=== PATIENT | female | born 1950 | race Caucasian/White ===

== ENCOUNTER 2017-04-21 13:26 | Outpatient (CLI) | payer MEDICARE ==
--- NOTE | 2017-04-22 14:01 | Mammography Report ---
DIGITAL SCREENING MAMMOGRAM: 04/21/2017 CLINICAL INDICATION: A 66-year-old with history of late childbearing, family history of breast cancer , for screening. COMPARISON: 09/2007. TECHNIQUE: Routine CC and MLO projections were obtained of the breasts. FINDINGS: The breasts demonstrate heterogeneously dense fibroglandular parenchyma bilaterally. Coars e, typically benign calcifications are present. No suspicious masses, clustered microcalcifications, or regions of architectural distortion are identified. IMPRESSION: BENIGN FINDINGS. RECOMMENDATION: ROUTINE ANNUAL SCREENING UNLESS OTHERWISE CLINICALLY INDICATED. BIRADS CATEGORY 2-BENIGN FINDINGS. STANDARD QUALIFYING STATEMENTS 1. This examination was reviewed with the aid of Computer-Aided Detection (CAD). 2. A negative or benign imaging report should not delay biopsy if clinically suspicious findings are present. Consider surgical consultation if warranted. More than 5% of cancers are not identified by i maging. 3. Dense breasts may obscure an underlying neoplasm. JOB #: [id number] EXT JOB #:[id number]
== END 2017-04-21 13:27 | disposition home or self-care (01) ==
LOC: DI.S 13:26
PROVIDERS: ATTEND Internal Medicine
DX: Z12.31 Encounter for screening mammogram for malignant neoplasm of breast (principal)
CPT/HCPCS: 77067

== ENCOUNTER 2017-12-07 10:08 | Outpatient (CLI) | payer MEDICARE ==
--- NOTE | 2017-12-07 11:05 | XRAY Report ---
THREE VIEW RIGHT FOOT: 12/07/2017 CLINICAL INDICATION: Pain, history of injury. FINDINGS: AP, lateral, and oblique views of the right foot demonstrate moderate to severe osteoarthritis at the first metatarsophalangeal joint. There is no evidence of acute fracture or dislocation. No radiopaque foreign body is seen in the soft tissues. IMPRESSION: MODERATE TO SEVERE OSTEOARTHRITIS OF THE FIRST METATARSOPHALANGEAL JOINT. TD: 12/07/2017 11:04
== END 2017-12-07 10:09 | disposition home or self-care (01) ==
LOC: DI 10:08
PROVIDERS: ATTEND Podiatrist
DX: M19.071 Primary osteoarthritis, right ankle and foot (principal)

== ENCOUNTER 2018-12-19 17:12 | Observation (INO) | payer MEDICARE, OTHER ==
[2018-12-19 17:38] LABS: BASOPHILS % (AUTO) 0.1 %; HGB - HEMOGLOBIN 12.3 g/dL (12.0-16.0); LYMPHOCYTES # (AUTO) 0.5 10^3/uL (1.5-3.5); LYMPHOCYTES % (AUTO) 4.8 %; MEAN CORPUSCULAR HGB CONC 33.5 g/dL (32.0-36.0); MEAN CORPUSCULAR VOLUME 95.5 fL (81.0-99.0); MEAN PLATELET VOLUME 8.9 fL (7.9-10.8); MONOCYTES # (AUTO) 0.6 10^3/uL (0.0-1.0); MONOCYTES % (AUTO) 6.4 %; NEUTROPHILS # (AUTO) 8.9 10^3/uL (1.5-6.6); NEUTROPHILS % (AUTO) 88.7 %; PLT - PLATELET COUNT 173 10^3/uL (130-450); RED BLOOD COUNT 3.85 10^6/uL (4.20-5.40); RED CELL DISTRIBUTION WIDTH 13.9 % (12.0-15.0)
[2018-12-19] MEDS ORDERED: SODIUM CHLORIDE 0.9% 1,000 ML IV ONE (17:46)
--- NOTE | 2018-12-19 17:49 | ED Physician Documentation ---
PD HPI URI - Stated complaint Stated Complaint: WEAKNESS/COUGH - Chief complaint Chief Complaint: Resp - History obtained from History obtained from: Patient - History of Present Illness Timing - onset: Other (68-year-old woman who just got back from [facility] today. She was there for a month, for the most part she stayed in the city but did venture outside of the city a little bit where she did get bitten by mosquitoes. She did not take malaria prophylaxis but did have yellow fever and typhoid vaccines prior to going. The last 5 days, starting while she was still there, she is developed a productive cough with yellow sputum, body aches, body wide cramping and chills. She denies any GI symptoms. She was seen 3 days ago at a hospital in [place], blood work was done without pertinent positive findings although she does not have those records with her, she did not have a chest x- ray.) Review of Systems Constitutional: reports: Chills, Sweats. denies: Fever Nose: reports: Congestion. denies: Rhinorrhea / runny nose Throat: denies: Sore throat Respiratory: reports: Dyspnea, Cough GI: denies: Abdominal Pain, Nausea, Vomiting, Diarrhea PD PAST MEDICAL HISTORY - Allergies Allergies/Adverse Reactions: Allergies Allergy/AdvReac Type Severity Reaction Status Date / Time latex Allergy Unknown Verified 12/19/18 17:23 PD ED PE NORMAL - Vitals Vital signs reviewed: Yes - General General: Alert and oriented X 3, No acute distress - HEENT HEENT: PERRL, EOMI, Ears normal, Pharynx benign, Other (dry MM) - Neck Neck: Supple, no meningeal sign, No bony TTP - Cardiac Cardiac: RRR, No murmur - Respiratory Respiratory: No respiratory distress, Other (diminished at both bases) - Abdomen Abdomen: Soft, Non tender - Back Back: No CVA TTP, No spinal TTP - Derm Derm: Normal color, Warm and dry - Extremities Extremities: No edema, No calf tenderness / cord - Neuro Neuro: Alert and oriented X 3, Normal speech Results - Vitals Vitals: Vital Signs - 24 hr 12/19/18 12/19/18 12/19/18 17:21 17:45 18:15 Temperature 37.3 C Heart Rate 98 93 Respiratory 22 24 Rate Blood Pressure 120/61 112/73 O2 Saturation 91 L 87 L 96 Oxygen O2 Source Nasal cannula Oxygen Flow Rate 2 - Labs Labs: Laboratory Tests 12/19/18 12/19/18 12/19/18 17:30 17:30 18:00 WBC 10.0 RBC 3.85 L Hgb 12.3 Hct 36.8 L MCV 95.5 MCH 32.0 H MCHC 33.5 RDW 13.9 Plt Count 173 MPV 8.9 Neut # (Auto) 8.9 H Lymph # (Auto) 0.5 L Ponce # (Auto) 0.6 Eos # (Auto) 0.0 Baso # (Auto) 0.0 Absolute Nucleated RBC 0.00 Nucleated RBC % 0.0 Sodium 130 L Potassium 4.1 Chloride 97 L Carbon Dioxide 21 Anion Gap 12.0 BUN 12 Creatinine 0.9 Estimated GFR (MDRD) 62 L Glucose 161 H Lactic Acid 1.2 Calcium 8.5 Total Bilirubin 0.5 AST 27 ALT 18 Alkaline Phosphatase 57 Total Protein 7.0 Albumin 3.4 Globulin 3.6 Albumin/Globulin Ratio 0.9 L Lipase 21 L PD MEDICAL DECISION MAKING - ED course ED course: 68-year-old woman presents from [facility] with a productive cough, shortness of breath and fevers. She is found to have pneumonia on x-ray and while in the department at rest drifted down as low as 83% on room air and required supplemental oxygen. She was cultured up and given Rocephin and Zithromax. Departure - Departure Disposition: 65 [facility] DC/Xfer Clinical Impression: Pneumonia Qualifiers: Pneumonia type: due to unspecified organism Laterality: bilateral Lung location: lower lobe of lung Qualified Code(s): J18.1 - Lobar pneumonia, unspecified organism Condition: Serious
[2018-12-19 17:51] LABS: ALBUMIN 3.4 g/dL (3.2-5.5); ALBUMIN/GLOBULIN RATIO 0.9 (1.0-2.2); BILIRUBIN,TOTAL 0.5 mg/dL (0.2-1.0); CALCIUM 8.5 mg/dL (8.5-10.3); CREATININE 0.9 mg/dL (0.4-1.0)
--- NOTE | 2018-12-19 18:19 | XRAY Report ---
Reason: COUGH Procedure Date: 12/19/2018 Accession Number: [id number] / [id number] Procedure: XR - Chest 2 View X-Ray CPT Code: 58051 FULL RESULT: EXAM: CHEST RADIOGRAPHY EXAM DATE: 12/19/2018 05:49 PM. CLINICAL HISTORY: COUGH. COMPARISON: None. TECHNIQUE: 2 views. FINDINGS: Lungs/Pleura: There is patchy airspace disease in the retrocardiac left lower lobe and lateral right lower lobe. The mid and upper lung zones are clear. No pleural effusion or pneumothorax. Mediastinum: Heart size is normal. Trachea is midline. Other: None. IMPRESSION: 1. Bilateral lower lobe airspace disease consistent with bibasilar pneumonia, sequela of aspiration, not excluding atelectasis. RADIA
[2018-12-19] MEDS ORDERED: AZITHROMYCIN INJ 500 MG in SODIUM CHLORIDE 0.9% 250 ML IV STA (18:32)
[2018-12-19] MEDS ORDERED: cefTRIAXone 1 GM in SODIUM CHLORIDE 0.9% MINIBAG 100 ML IV STA (18:32)
[2018-12-19] MEDS ORDERED: ONDANSETRON 4 MG/2 ML VIAL IVP STA (19:30)
[2018-12-19] MEDS ORDERED: SODIUM CHLORIDE FLUSH 0.9% 10 ML SYRINGE IVP PRN (19:34)
[2018-12-19] MEDS ORDERED: ACETAMINOPHEN 325 MG TABLET PO PRN (19:34)
[2018-12-19] MEDS ORDERED: IPRATROPIUM/ALBUTEROL 3 ML NEB INH PRN (19:43)
[2018-12-19] MEDS ORDERED: ONDANSETRON 4 MG/2 ML VIAL IVP PRN (20:24)
--- NOTE | 2018-12-19 21:05 | HISTORY & PHYSICAL EXAMINATION ---
Chief Complaint - Chief Complaint Chief Complaint: dyspnea, cough, chills History of Present Illness - Admitted From Admitted From:: [facility] ED - History Obtained From Records Reviewed: yes History obtained from: patient - History of Present Illness HPI Comment/Other: Patient seen on 12/19/18 at 2000pm. Patient is a 68 y/o female who presented to [facility] ED with complain of chills, SOB and a cough productive of yellowish sputum. She just returned from [facility] where she has been for the past 1 month. She has been taki ng care of her niece's son there while her niece carried on her medical work there. For the last 5 days of the trip she had been having sudden episodes of shaking and nausea. She has been travelling for the past 24 hrs and just arrived [facility]. As a result she is very exhausted and oral mucosa is very dry. She had a temperature of 101.2F at home. She did not take any malaria prevention prior to traveling down to [place] because it is not an endemic area for malaria. [place] her stay there. She reports pleuritic chest pain with coughing. She denies abdominal pain or vomiting. She denies joint pain. In the ED she was found to have an O2Sat of 83% on room air. Work up included a chest xray which showed bilateral opacities. As a result she is being admitted for further management. History - Past Medical History Respiratory: reports: Asthma Psych: reports: Depression - Past Surgical History Ortho: reports: Other (bilateral wrist fractures) - Family & Social History Family History: Mother: Cancer (lung cancer), Sister: Cancer Social History Notes: She is independent of activities of daily living. She rarely consumes alcohol. She does not smoke or use - POLST Patient has POLST: No POLST Status: Full Code Meds/Allgy - Home Medications Home Medications: Ambulatory Orders Medication Instructions Recorded Confirmed Albuterol Sulf [Ventolin Hfa 12/19/18 Inhaler] Dexamethasone [Dexpak] 12/19/18 buPROPion [Wellbutrin Sr] 150 mg PO BID 12/19/18 12/19/18 - Allergies Allergies/Adverse Reactions: Allergies Allergy/AdvReac Type Severity Reaction Status Date / Time latex Allergy Unknown Verified 12/19/18 17:23 Review of Systems - Constitutional Constitutional: reports: Fatigue, Fever, Weakness - Eyes Eyes: denies: Blurred vision, Vision loss, Dipolpia - Ears, Nose & Throat Ears, Nose & Throat: denies: Nasal pain, Nasal discharge, Sore throat, Hoarseness - Cardiovascular Cariovascular: denies: Irregular heart rate, Palpitations, Chest pain, Edema - Respiratory Respiratory: reports: Cough, Sputum production, SOB at rest, Pleuritic pain. denies: Wheezing, Hemoptysis - Gastrointestinal Gastrointestinal: reports: Nausea. denies: Abdominal pain, Abdominal distention, Constipation, Diarrhea, Vomiting, Reflux/heartburn - Musculoskeletal Musculoskeletal: denies: Muscle pain, Back pain, Muscle aches, Stiffness, Joint pain - Integumentary Integumentary: denies: Rash, Pruritis, Lesions - Neurological Neurological: reports: Headache. denies: General weakness, Focal weakness, Dizziness, Numbness - Psychiatric Psychiatric: denies: Depression, Anxiety - Endocrine Endocrine: denies: Polyuria, Polydypsia - Hematologic/Lymphatic Hematologic/Lymphatic: denies: Anemia, Bruising Prior Level of Functionality: She is independent of activities of daily living Exam - Vital Signs Vital Signs: Vital Signs x48h Temp Pulse Resp BP Pulse Ox 12/19/18 19:37 97 24 117/59 L 92 12/19/18 18:15 93 24 112/73 96 12/19/18 17:45 87 L 12/19/18 17:21 37.3 C 98 22 120/61 91 L - Physical Exam General Appearance: positive: No acute distress, Alert, Mild distress Eyes Bilateral: positive: Normal inspection, PERRL, EOMI ENT: positive: Dry mucous membranes. negative: Oral lesions Neck: positive: Nml inspection, No JVD, Trachea midline Respiratory: positive: Chest non-tender, Breath sounds nml. negative: Wheezes, Rales, Rhonchi Cardiovascular: positive: Regular rate & rhythm, No murmur. negative: JVD present Abdomen: positive: Non-tender, Nml bowel sounds, No distention. negative: Guarding, Rebound Back: positive: Nml inspection Skin: positive: Color nml, No rash, Warm, Dry Extremities: positive: Non-tender, No pedal edema Neurologic/Psychiatric: positive: Oriented x3 Conclusion/Plan - Problem List (1) Pneumonia Conclusion/Plan: Patient started on Rocephin and Azithromycin On 3L Oxygen via nasal cannula IV hydration with normal saline If no improvement, consider changing antibiotics to cover for aspiration Lab work for malaria pending Qualifiers: Pneumonia type: due to unspecified organism Laterality: bilateral Lung location: lower lobe of lung Qualified Code(s): J18.1 - Lobar pneumonia, unspecified organism (2) Depression Conclusion/Plan: On wellbutrin - Lab Results Fish Bones: 12/19/18 17:30 12/19/18 17:30 Core Measures - Anticipated LOS I expect patient to be DC'd or transferred within 96 hours.: Yes - DVT/VTE - Prophylaxis VTE/DVT Device ordered at admit?: Yes VTE/DVT Prophylaxis med ordered at admit?: Yes
[2018-12-19] MEDS: SODIUM CHLORIDE 0.9% 1,000 ML IV SCH (21:51)
[2018-12-19] MEDS: SODIUM CHLORIDE FLUSH 0.9% 10 ML SYRINGE IVP SCH (21:54)
[2018-12-20] MEDS ORDERED: BENZOCAINE/MENTHOL LOZENGE MM PRN (03:42)
[2018-12-20] MEDS: SODIUM CHLORIDE 0.9% 1,000 ML IV SCH ×2 (04:54→13:29)
[2018-12-20 05:00] LABS: BASOPHILS % (AUTO) 0.1 %; HGB - HEMOGLOBIN 11.3 g/dL (12.0-16.0); LYMPHOCYTES # (AUTO) 0.7 10^3/uL (1.5-3.5); LYMPHOCYTES % (AUTO) 7.6 %; MEAN CORPUSCULAR HEMOGLOBIN 32.3 pg (27.0-31.0); MEAN CORPUSCULAR VOLUME 95.1 fL (81.0-99.0); MEAN PLATELET VOLUME 9.1 fL (7.9-10.8); MONOCYTES # (AUTO) 0.6 10^3/uL (0.0-1.0); MONOCYTES % (AUTO) 6.9 %; NEUTROPHILS # (AUTO) 7.6 10^3/uL (1.5-6.6); NEUTROPHILS % (AUTO) 85.4 %; PLT - PLATELET COUNT 171 10^3/uL (130-450); RED CELL DISTRIBUTION WIDTH 14.2 % (12.0-15.0); WHITE BLOOD COUNT 8.9 x10^3/uL (4.8-10.8)
[2018-12-20 05:08] LABS: CALCIUM 7.6 mg/dL (8.5-10.3); CREATININE 0.6 mg/dL (0.4-1.0)
[2018-12-20] MEDS ORDERED: ENOXAPARIN 40 MG/0.4 ML SYRINGE SUBQ SCH (09:00)
[2018-12-20] MEDS ORDERED: POLYETHYLENE GLYCOL 3350 17 GM PACKET PO SCH (09:00)
--- NOTE | 2018-12-20 09:15 | Discharge Plan ---
Discharge Plan Disposition: Home, Self Care Condition: Fair Prescriptions: Azithromycin [Zithromax] 500 mg PO DAILY #10 tablet L. Acidophilus/L.bulgaricus [Lactobacillus Tablet] 1 each PO DAILY #5 tablet Diet: Regular Activity Restrictions: Activity as Tolerated Shower Restrictions: No Driving Restrictions: No Instruction Topics: Pneumonia Tx Additional Instructions or Follow Up instructions: You were treated for dehydration and a community acquired pneumonia. Please take the antibiotics (and probiotics) until they are done. Stay well hydrated and rest. Resume your pre-hospital medications. See your PCP this week for follow-up and to get results of the tests that were "send aways", while you were here (regarding possible Malaria). If you have new or worsening symptoms, call your PCP or come to the ER. No Smoking: If you smoke, Please STOP! Call for help. Follow-up with: OLIVER RAMIREZ MD [Primary Care Provider] -
[2018-12-20] MEDS: SODIUM CHLORIDE FLUSH 0.9% 10 ML SYRINGE IVP SCH (11:00)
[2018-12-20 16:16] VITALS: BP 109/59
[2018-12-20] MEDS ORDERED: cefTRIAXone 1 GM in SODIUM CHLORIDE 0.9% MINIBAG 100 ML IV SCH (18:00)
[2018-12-20] MEDS ORDERED: AZITHROMYCIN 250 MG TABLET PO SCH (18:00)
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
== END 2018-12-20 17:10 | disposition home or self-care (01) ==
LOC: ED 17:12 → MS3 19:34
PROVIDERS: ADMIT Internal Medicine; ATTEND Internal Medicine
DX: J18.1 Lobar pneumonia, unspecified organism (principal); E86.0 Dehydration; F32.9 Major depressive disorder, single episode, unspecified; J45.909 Unspecified asthma, uncomplicated
CPT/HCPCS: 36415; 71046; 80048; 80053; 83605; 83690; 85025; 87040; 94640; 96361; 96365; 96366; 96367; 96372; 96375; 99283; A9270; G0378; J1650